=== PATIENT | female | born 2000 | race Caucasian/White ===

== ENCOUNTER 2021-08-06 12:07 | Outpatient (CLI) | payer OTHER ==
[2021-08-07 00:02] LABS: SARS-CoV-2 PCR by NAA Not Detected (NotDetected)
== END 2021-08-06 12:08 | disposition home or self-care (01) ==
LOC: CSHLAB 12:07
PROVIDERS: ATTEND Surgery
DX: Z20.822 Contact with and (suspected) exposure to COVID-19 (principal)
CPT/HCPCS: U0003; U0005

== ENCOUNTER 2021-08-08 06:40 | Day surgery (SDC) | payer OTHER ==
[2021-08-07 09:37] VITALS: BMI 29.2
[2021-08-08] MEDS ORDERED: Lidocaine 1% MPF 2 ML VIAL ONE (08:32)
[2021-08-08] MEDS ORDERED: Scopolamine 1.5 mg/72 hour Patch ONE (09:43)
[2021-08-08] MEDS ORDERED: Midazolam HCl 2 mg/2 ml Vial ONE (09:44)
[2021-08-08] MEDS ORDERED: ceFAZolin 2 GM/Dextrose 50 ML IVPB ONE (10:27)
[2021-08-08] MEDS ORDERED: Fentanyl 100 MCG/2 ML VIAL ONE ×2 (10:35→11:37)
[2021-08-08] MEDS ORDERED: PROPOFOL 20 ML ONE (10:35)
[2021-08-08] MEDS ORDERED: diphenhydrAMINE 50 MG/ML VIAL ONE (10:50)
[2021-08-08] MEDS ORDERED: Dexamethasone 20 MG/5 ML VIAL ONE (10:50)
[2021-08-08] MEDS ORDERED: Glycopyrrolate 0.2 MG/ML 5 ML SYRINGE ONE (10:51)
[2021-08-08] MEDS ORDERED: PHENYLEPHRINE-NS 100 MCG/ML 10 ML SYRINGE ONE (10:53)
[2021-08-08] MEDS ORDERED: EPINEPHrine 1 MG/ML AMP ONE (10:58)
[2021-08-08] MEDS ORDERED: Ondansetron PF 4 MG/2 ML Vial ONE ×2 (11:22→11:38)
[2021-08-08] MEDS ORDERED: Ketorolac Tromethamine 30 MG/ML VIAL ONE (11:38)
[2021-08-08] MEDS ORDERED: Bupivacaine PF 0.5% 30 ML VIAL ONE (11:48)
[2021-08-08] MEDS ORDERED: Acetaminophen 325 MG TAB PO PRN (12:00)
[2021-08-08] MEDS ORDERED: HYDROcodone/Acetaminophen 5/325 mg Tablet PO PRN (12:00)
[2021-08-08] MEDS ORDERED: Meperidine HCl/PF 25 MG/ML VIAL ONE (12:07)
== END 2021-08-08 13:20 | disposition home or self-care (01) ==
LOC: CSHSDC 06:40
PROVIDERS: ATTEND Surgery
PROC: 0FT44ZZ Resection of Gallbladder, Percutaneous Endoscopic Approach (ICD-10-PCS; principal; 2021-08-08)
DX: K80.10 Calculus of gallbladder with chronic cholecystitis without obstruction (principal)
CPT/HCPCS: 88304; C1776; J0171; J0690; J1100; J1200; J1885; J2175; J2250; J2405; J2704; J3010; S0020

== ENCOUNTER 2022-07-29 09:51 | Day surgery (SDC) | payer BC, OTHER ==
[2022-07-29 10:29] VITALS: BMI 30.2
[2022-07-29 11:01] LABS: Hemoglobin 12.7 g/dL (12.0-15.5); Mean Corpuscular HGB CONC 34.3 g/dL (32.0-36.0); Mean Corpuscular Hemoglobin 29.8 pg (27.0-33.0); Mean Corpuscular Volume 86.9 fl (81.6-98.3); Mean Platelet Volume 8.4 fl (7.4-10.4); Platelet Count 351 10x3/uL (150-450); RBC Distribution Width 12.2 % (11.5-14.5); Red Blood Cell (RBC) Count 4.26 10x6/uL (3.90-5.03)
[2022-07-29] MEDS ORDERED: Lidocaine 2% PF 5 ML VIAL ONE (12:22)
[2022-07-29] MEDS ORDERED: PROPOFOL 20 ML ONE (12:22)
[2022-07-29] MEDS ORDERED: CEFAZOLIN 2 GM VIAL ONE (12:34)
[2022-07-29] MEDS ORDERED: Famotidine/PF 20 mg/2ml Vial ONE (12:36)
[2022-07-29] MEDS ORDERED: Fentanyl 100 MCG/2 ML VIAL ONE (12:38)
[2022-07-29] MEDS ORDERED: Metoclopramide HCl 10 MG/2 ML VIAL ONE (12:41)
[2022-07-29] MEDS ORDERED: Ketorolac Tromethamine 30 MG/ML VIAL ONE (12:41)
[2022-07-29] MEDS ORDERED: Ondansetron PF 4 MG/2 ML Vial ONE (12:41)
[2022-07-29] MEDS ORDERED: Dexamethasone 4 mg/ml Vial ONE (12:41)
[2022-07-29] MEDS ORDERED: Oxytocin 10 UNITS/ML VIAL ONE (13:05)
[2022-07-29] MEDS ORDERED: PHENYLEPHRINE-NS 100 MCG/ML 10 ML SYRINGE ONE (13:05)
== END 2022-07-29 14:45 | disposition home or self-care (01) ==
LOC: CSHSDC 09:51
PROVIDERS: ATTEND Obstetrics & Gynecology
PROC: 10D17ZZ Extraction of Products of Conception, Retained, Via Natural or Artificial Opening (ICD-10-PCS; principal; 2022-07-29)
DX: O02.1 Missed abortion (principal); Z90.5 Acquired absence of kidney
CPT/HCPCS: 84702; 85027; 86850; 86900; 86901; 88305; J1100; J1885; J2001; J2405; J2590; J2704; J2765; J3010; S0028